=== PATIENT | female | born 1945 | race Two or more races ===

== ENCOUNTER 2023-08-10 05:44 | Inpatient (IN) | payer MEDICARE, OTHER ==
[~2023-08-10] VITALS: Ht 154.9 cm; Wt 50.5 kg
[2023-08-10] MEDS ORDERED: hydrALAZINE HCL 20 MG/ML VL IV ONE (06:00)
[2023-08-10 06:36] VITALS: PULSE 106; RESP 32; O2SAT 96
[2023-08-10] MEDS ORDERED: NITROGLYCERIN 0.4 MG SL TAB SL ONE (06:45)
[2023-08-10] MEDS ORDERED: FUROSEMIDE 40 MG/4 ML VIAL IV ONE (06:45)
[2023-08-10 06:48] LABS: Alanine Aminotransferase 14 U/L (7-40); Alkaline Phosphatase 114 U/L (46-116); Anion Gap 6 (5-15); Aspartate Aminotransferase 15 U/L (13-40); Basophils # (auto) 0.1 10 ^3/uL (0-0.2); Basophils % (auto) 1.3 % (0.0-2.0); Blood Urea Nitrogen 12 mg/dL (9-23); Calcium 8.4 mg/dL (8.7-10.4); Carbon Dioxide 27 mmol/L (20-30); Chloride 105 mmol/L (98-107); Eosinophils # (auto) 0.4 10 ^3/uL (0-0.8); Eosinophils % (auto) 8.4 % (0.0-7.0); Glucose 112 mg/dL (74-106); Hematocrit 38.1 % (36.0-46.0); Hemoglobin 12.7 g/dL (12.2-16.2); Lymphocytes # (auto) 2.5 10 ^3/uL (0.4-5.4); Lymphocytes % (auto) 48.3 % (10.0-50.0); Magnesium 1.9 mg/dL (1.6-2.6); Mean Corpuscular Hemoglobin 32.4 pg (28.0-32.0); Mean Corpuscular Hgb Conc. 33.4 g/dL (32.0-36.0); Monocytes # (auto) 0.3 10 ^3/uL (0-1.3); Monocytes % (auto) 6.6 % (0.0-12.0); Neutrophils # (auto) 1.8 10 ^3/uL (1.6-8.6); Neutrophils % (auto) 35.4 % (37.0-80.0); Nucleated Red Blood Cells % 0.1 %; Red Blood Cells 3.93 10^6/uL (4.0-5.20); Red Cell Distribution Width 14.9 % (11.8-14.3); Sodium 138 mmol/L (136-145); White Blood Cell 5.2 10^3/uL (4.4-10.8)
[2023-08-10 06:49] LABS: Bilirubin, Total 0.8 mg/dL (0.2-1.0)
[2023-08-10 06:50] LABS: Total Protein 6.9 g/dL (5.7-8.2)
[2023-08-10 07:09] LABS: Potassium 2.9 mmol/L (3.5-5.1)
[2023-08-10 07:10] LABS: INR 1.06 (0.9-1.15); Partial Thromboplastin Time 25.9 SEC (24.5-34.5); Prothrombin Time 11.1 sec (9.3-11.8)
[2023-08-10] MEDS ORDERED: POTASSIUM CHL 20MEQ/100ML 100 ML IV ONE (07:15)
[2023-08-10] MEDS ORDERED: IPRATROPIUM BROM 0.5 MG/2.5ML INH SOL HHN ONE (07:15)
[2023-08-10] MEDS ORDERED: methylPREDNISolone SOD SUCC 40 MG/ML VL IV ONE (07:15)
[2023-08-10] MEDS ORDERED: ALBUTEROL SULF 2.5 MG/0.5ML(0.5%) NEB SOLN HHN ONE (07:15)
[2023-08-10 07:23] LABS: Urine Bacteria FEW /hpf (None Seen); Urine Blood Negative /uL (Negative); Urine Clarity Clear (Clear); Urine Color Straw (Yellow); Urine Hyaline Cast FEW /lpf (0 - 2); Urine Mucus FEW (None Seen); Urine Protein, UAD TRACE (Negative); Urine Specific Gravity 1.014 (1.001-1.035); Urine Urobilinogen Normal (Negative); Urine WBC 2 /hpf (0 - 5); Urine pH 6.5 (5.0-8.0)
[2023-08-10 08:00] VITALS: PULSE 109; RESP 24; O2SAT 99
[2023-08-10] MEDS ORDERED: NITROGLYCERIN 0.4 MG SL TAB SL PRN (10:15)
[2023-08-10] MEDS ORDERED: MORPHINE SULFATE INJ 2 MG/ml SYRG IV PRN ×2 (10:15→10:30)
[2023-08-10] MEDS ORDERED: POTASSIUM CHL 20 Meq TABLET PO ONE (10:15)
[2023-08-10] MEDS ORDERED: ONDANSETRON HCL 4 MG/2 ML VIAL IV PRN (10:30)
[2023-08-10 10:43] VITALS: PULSE 84; RESP 24; O2SAT 96
[2023-08-10 11:20] LABS: Rapid Influenza A Negative (Negative); Rapid Influenza B Negative (Negative)
[2023-08-10 11:21] LABS: COVID19 ANTIGEN SOFIA FIA NEGATIVE (NEGATIVE)
[2023-08-10] MEDS: cefTRIAXone 1GM/50ML D5W 50 ML IV SCH (11:22)
[2023-08-10] MEDS: methylPREDNISolone SOD SUCC 40 MG/ML VL IV SCH ×2 (12:08→18:14)
[2023-08-10] MEDS: IPRATROPIUM BROM 0.5 MG/2.5ML INH SOL NEB SCH ×2 (13:01→17:58)
[2023-08-10] MEDS: ALBUTEROL SULF 2.5 MG/0.5ML(0.5%) NEB SOLN NEB SCH ×2 (13:01→17:58)
[2023-08-10 15:31] LABS: Potassium 3.8 mmol/L (3.5-5.1)
[2023-08-10 15:38] LABS: Magnesium 1.8 mg/dL (1.6-2.6)
[2023-08-10 17:58] VITALS: PULSE 79; RESP 18; O2SAT 92
[2023-08-10 18:08] VITALS: PULSE 74; RESP 20; O2SAT 94
[2023-08-10] MEDS ORDERED: cloNIDine HCL 0.1 MG TAB PO ONE (18:30)
[2023-08-10 19:50] VITALS: PULSE 69; RESP 18; O2SAT 92
[2023-08-10] MEDS: cloNIDine HCL 0.1 MG TAB PO SCH (22:00)
[2023-08-11] VITALS (11 sets, daily range): BP systolic 107–147; BP diastolic 60–83; PULSE 60–74; RESP 16–20; TEMP 97.7–98.1; O2SAT 92–100
[2023-08-11] MEDS: methylPREDNISolone SOD SUCC 40 MG/ML VL IV SCH ×2 (00:05→06:27)
[2023-08-11] MEDS: ALBUTEROL SULF 2.5 MG/0.5ML(0.5%) NEB SOLN NEB SCH ×2 (06:08→13:11)
[2023-08-11] MEDS: IPRATROPIUM BROM 0.5 MG/2.5ML INH SOL NEB SCH ×2 (06:08→13:10)
[2023-08-11] MEDS: cefTRIAXone 1GM/50ML D5W 50 ML IV SCH (09:45)
[2023-08-11] MEDS: cloNIDine HCL 0.1 MG TAB PO SCH (09:47)
[2023-08-11] MEDS ORDERED: FAMOTIDINE 20 MG TAB PO SCH (10:00)
[2023-08-11] MEDS ORDERED: ENOXAPARIN SOD 40 MG/0.4 ML SYRINGE SC SCH (10:00)
[2023-08-11] MEDS ORDERED: IPRA0.00 IN (13:18)
[2023-08-11] MEDS ORDERED: BLOO1KIT56 XX (13:18)
[2023-08-11] MEDS ORDERED: AMLO1TAB23 PO (13:18)
[2023-08-11] MEDS ORDERED: DOXY-286 PO (13:18)
[2023-08-11] MEDS ORDERED: PRED20TA2 PO (13:18)
== END 2023-08-11 16:53 | disposition home health service (06) | DRG 202 ==
LOC: EDBD 05:44 → ER 05:44 → TELE 10:14 → TELE-EAST 08-11 01:02
PROVIDERS: ADMIT Hospitalist; ATTEND Hospitalist
DX: J20.9 Acute bronchitis, unspecified (principal); I50.32 Chronic diastolic (congestive) heart failure; J44.0 Chronic obstructive pulmonary disease with (acute) lower respiratory infection; J84.9 Interstitial pulmonary disease, unspecified; J44.1 Chronic obstructive pulmonary disease with (acute) exacerbation; I16.0 Hypertensive urgency; E87.6 Hypokalemia; F17.200 Nicotine dependence, unspecified, uncomplicated; Z20.822 Contact with and (suspected) exposure to COVID-19; I11.0 Hypertensive heart disease with heart failure; Z90.710 Acquired absence of both cervix and uterus; Z82.49 Family history of ischemic heart disease and other diseases of the circulatory system
CPT/HCPCS: 36415; 71045; 80053; 81001; 83735; 83880; 84132; 84484; 85025; 85379; 85610; 85730; 87426; 87804; 92610; 93005; 93306; 94640; 96365; 96366; 96367; 96375; 99291; G0378; J0696; J3480

== ENCOUNTER 2023-12-20 02:34 | Inpatient (IN) | payer OTHER ==
[2023-12-20] VITALS (13 sets, daily range): BP systolic 129; BP diastolic 72; PULSE 64–79; RESP 14–26; O2SAT 97–100
[~2023-12-20] VITALS: Ht 160 cm; Wt 49.5 kg
[~2023-12-20 02:34] MED LIST: AMLO1TAB23 PO; BLOO1KIT56 XX; DOXY-286 PO; IPRA0.00 IN; PRED20TA2 PO
[2023-12-20] MEDS ORDERED: IPRATROPIUM BROM 0.5 MG/2.5ML INH SOL NEB ONE (03:30)
[2023-12-20] MEDS: methylPREDNISolone SOD SUCC 125 MG/2 ML VL IV ONE (03:30)
[2023-12-20] MEDS: DexAMETHasone SOD PHOS 10MG/1ML VIAL INJ IV ONE (03:31)
[2023-12-20] MEDS ORDERED: cefTRIAXone 2GM/50ML D5W 50 ML IV ONE (03:45)
[2023-12-20] MEDS: LABETALOL HCL 5 MG/ML 4ML SYRINGE IV ONE (03:57)
[2023-12-20 03:58] LABS: Base Excess -2.7 mmol/L (-2.0-2.0)
[2023-12-20] MEDS: ALBUTEROL SULF 2.5 MG/0.5ML(0.5%) NEB SOLN ONE ×2 (03:59→12:21)
[2023-12-20] MEDS: IPRATROPIUM BROM 0.5 MG/2.5ML INH SOL ONE ×2 (03:59→12:21)
[2023-12-20] MEDS: cefTRIAXone 1GM/50ML D5W 50 ML IV ONE ×2 (04:06→04:07)
[2023-12-20 04:08] LABS: Basophils # (auto) 0.1 10 ^3/uL (0-0.2); Eosinophils # (auto) 0.6 10 ^3/uL (0-0.8); Eosinophils % (auto) 10.4 % (0.0-7.0); Hematocrit 40.3 % (36.0-46.0); Hemoglobin 13.5 g/dL (12.2-16.2); Lymphocytes # (auto) 1.9 10 ^3/uL (0.4-5.4); Lymphocytes % (auto) 33.7 % (10.0-50.0); Mean Corpuscular Hemoglobin 32.3 pg (28.0-32.0); Mean Corpuscular Hgb Conc. 33.6 g/dL (32.0-36.0); Mean Corpuscular Volume 96.1 fL (80.0-100.0); Monocytes # (auto) 0.4 10 ^3/uL (0-1.3); Monocytes % (auto) 7.2 % (0.0-12.0); Neutrophils # (auto) 2.7 10 ^3/uL (1.6-8.6); Neutrophils % (auto) 47.7 % (37.0-80.0); Nucleated Red Blood Cells % 0.2 %; Red Blood Cells 4.19 10^6/uL (4.0-5.20); Red Cell Distribution Width 16.2 % (11.8-14.3); White Blood Cell 5.7 10^3/uL (4.4-10.8)
[2023-12-20] MEDS: AZITHROMYCIN 500MG/ 250ML 250 ML IV ONE (04:12)
[2023-12-20] MEDS: ALBUTEROL SULF 2.5 MG/0.5ML(0.5%) NEB SOLN NEB ONE ×2 (04:18→12:15)
[2023-12-20] MEDS: IPRATROPIUM BROM 0.5 MG/2.5ML INH SOL NEB ONE ×2 (04:18→12:15)
[2023-12-20] MEDS: BUDESONIDE (INHALATION) 0.5 MG/2 ML NEB NEB ONE (04:18)
[2023-12-20 04:47] LABS: COVID19 ANTIGEN SOFIA FIA NEGATIVE (NEGATIVE); Rapid Influenza A Negative (Negative); Rapid Influenza B Negative (Negative)
[2023-12-20 04:52] LABS: Alanine Aminotransferase 10 U/L (7-40); Albumin 4.2 g/dL (3.2-4.8); Alkaline Phosphatase 113 U/L (46-116); Anion Gap 7 (5-15); Aspartate Aminotransferase 18 U/L (13-40); Blood Urea Nitrogen 11 mg/dL (9-23); Calcium 8.5 mg/dL (8.7-10.4); Carbon Dioxide 25 mmol/L (20-30); Chloride 105 mmol/L (98-107); Glucose 126 mg/dL (74-106); Potassium 3.7 mmol/L (3.5-5.1); Sodium 137 mmol/L (136-145)
[2023-12-20 04:53] LABS: Bilirubin, Total 0.7 mg/dL (0.2-1.0); Total Protein 7.5 g/dL (5.7-8.2)
[2023-12-20] MEDS: LEVALBUTEROL HCL 1.25 MG/3 ML NEB NEB SCH (05:00)
[2023-12-20] MEDS ORDERED: LEVALBUTEROL HCL 1.25 MG/3 ML NEB NEB SCH (06:00)
[2023-12-20 10:15] LABS: Urine Bacteria FEW /hpf (None Seen); Urine Blood Negative /uL (Negative); Urine Clarity Clear (Clear); Urine Color Yellow (Yellow); Urine Hyaline Cast FEW /lpf (0 - 2); Urine Mucus FEW (None Seen); Urine Protein, UAD 1+ (Negative); Urine Specific Gravity 1.017 (1.001-1.035); Urine Urobilinogen Normal (Negative); Urine WBC 3 /hpf (0 - 5)
[2023-12-20] MEDS ORDERED: ONDANSETRON HCL 4 MG/2 ML VIAL IV PRN (11:30)
[2023-12-20] MEDS ORDERED: MORPHINE SULFATE INJ 2 MG/ml SYRG IV PRN ×2 (11:30)
[2023-12-20] MEDS ORDERED: NITROGLYCERIN 0.4 MG SL TAB SL PRN (11:30)
[2023-12-20] MEDS ORDERED: HYDROcodone-ACET 5/325MG TAB PO PRN (11:30)
[2023-12-20] MEDS: methylPREDNISolone SOD SUCC 40 MG/ML VL IV SCH (14:09)
[2023-12-20] MEDS: ALBUTEROL SULF 2.5 MG/0.5ML(0.5%) NEB SOLN NEB SCH (14:33)
[2023-12-20] MEDS: IPRATROPIUM BROM 0.5 MG/2.5ML INH SOL NEB SCH (14:33)
[2023-12-20] MEDS: BUDESONIDE (INHALATION) 0.5 MG/2 ML NEB NEB SCH (18:43)
[2023-12-20] MEDS: FAMOTIDINE 20 MG TAB PO SCH (22:31)
[2023-12-21] VITALS (16 sets, daily range): BP systolic 108–162; BP diastolic 56–93; PULSE 67–104; RESP 14–22; TEMP 97.6–98.2; O2SAT 72–100
[2023-12-21] MEDS: cefTRIAXone 1GM/50ML D5W 50 ML IV SCH (09:29)
[2023-12-21] MEDS: ENOXAPARIN SOD 40 MG/0.4 ML SYRINGE SC SCH (09:31)
[2023-12-21] MEDS ORDERED: ALBU2TAB11 PO (16:13)
[2023-12-21] MEDS ORDERED: AML5T GT (16:13)
[2023-12-21] MEDS ORDERED: MONT-8 OR (16:13)
[2023-12-21] MEDS ORDERED: BUDE1AER5 IN (16:13)
[2023-12-21] MEDS: ALBUTEROL SULF 2.5 MG/0.5ML(0.5%) NEB SOLN NEB PRN (18:29)
[2023-12-21] MEDS: IPRATROPIUM BROM 0.5 MG/2.5ML INH SOL NEB PRN (18:29)
[2023-12-21] MEDS ORDERED: VANCOMYCIN PER PHARMACY 0 MG IV SCH (21:45)
[2023-12-21] MEDS: VANCOMYCIN 1GM/200ML 200 ML IV ONE (21:55)
[2023-12-22] VITALS (10 sets, daily range): BP systolic 134–152; BP diastolic 67–76; PULSE 59–73; RESP 16–20; TEMP 36.7; O2SAT 94–99
[2023-12-22 06:51] LABS: Basophils # (auto) 0 10 ^3/uL (0-0.2); Basophils % (auto) 0.1 % (0.0-2.0); Eosinophils # (auto) 0 10 ^3/uL (0-0.8); Hematocrit 36.3 % (36.0-46.0); Hemoglobin 12.3 g/dL (12.2-16.2); Lymphocytes # (auto) 0.6 10 ^3/uL (0.4-5.4); Lymphocytes % (auto) 8.1 % (10.0-50.0); Mean Corpuscular Hemoglobin 32.2 pg (28.0-32.0); Mean Corpuscular Hgb Conc. 33.7 g/dL (32.0-36.0); Mean Corpuscular Volume 95.4 fL (80.0-100.0); Monocytes # (auto) 0.2 10 ^3/uL (0-1.3); Monocytes % (auto) 2.5 % (0.0-12.0); Neutrophils # (auto) 6.3 10 ^3/uL (1.6-8.6); Neutrophils % (auto) 89.3 % (37.0-80.0); Red Blood Cells 3.81 10^6/uL (4.0-5.20); White Blood Cell 7.1 10^3/uL (4.4-10.8)
[2023-12-22 06:56] LABS: Anion Gap 6 (5-15); Carbon Dioxide 27 mmol/L (20-30); Chloride 104 mmol/L (98-107); Sodium 137 mmol/L (136-145)
[2023-12-22 06:58] LABS: Calcium 8.6 mg/dL (8.5-10.1)
[2023-12-22 07:02] LABS: BUN/Creatinine Ratio 33.8 (10.0-20.0); Blood Urea Nitrogen 27 mg/dL (9-23); Glucose 138 mg/dL (74-106)
[2023-12-22] MEDS ORDERED: PRED20TA2 PO (16:15)
[2023-12-22] MEDS ORDERED: BUDE1AER5 IN (16:15)
[2023-12-22] MEDS ORDERED: MONT-8 OR (16:15)
[2023-12-22] MEDS ORDERED: AMOX500T86 PO (16:15)
[2023-12-22] MEDS ORDERED: IPRA0.00 IN (16:15)
[2023-12-22] MEDS ORDERED: VANCOMYCIN 750mg/150ml 150 ML IV SCH (18:00)
== END 2023-12-22 18:54 | disposition home health service (06) | DRG 177 ==
LOC: ER 02:34 → EDBD 02:34 → OVERFLOW 11:33 → WEST WING 12-21 02:11
PROVIDERS: ADMIT Hospitalist; ATTEND Hospitalist
DX: J15.69 Pneumonia due to other Gram-negative bacteria (principal); I50.33 Acute on chronic diastolic (congestive) heart failure; J44.1 Chronic obstructive pulmonary disease with (acute) exacerbation; J98.11 Atelectasis; J45.901 Unspecified asthma with (acute) exacerbation; J44.0 Chronic obstructive pulmonary disease with (acute) lower respiratory infection; J15.9 Unspecified bacterial pneumonia; Z20.822 Contact with and (suspected) exposure to COVID-19; J20.9 Acute bronchitis, unspecified; I11.0 Hypertensive heart disease with heart failure; Z90.710 Acquired absence of both cervix and uterus; R06.03 Acute respiratory distress
CPT/HCPCS: 36415; 36600; 71045; 80048; 80053; 81001; 82805; 83605; 83880; 84484; 85025; 85379; 87040; 87077; 87186; 87426; 87804; 93005; 94640; 96365; 96375; 97110; 97116; 97163; 97530; 99291; G0378; J1100; J3490

== ENCOUNTER 2024-04-07 18:15 | Inpatient (IN) | payer OTHER ==
[~2024-04-07] VITALS: Ht 149.9 cm; Wt 60.8 kg
[~2024-04-07 18:15] MED LIST changes: +ALBU2TAB11 PO; +AMOX500T86 PO; +BUDE1AER5 IN; -DOXY-286 PO; +MONT-8 OR
[2024-04-07] MEDS: ALBUTEROL SULF 2.5 MG/0.5ML(0.5%) NEB SOLN NEB ONE ×2 (20:35→23:39)
[2024-04-07] MEDS: IPRATROPIUM BROM 0.5 MG/2.5ML INH SOL NEB ONE ×2 (20:35→23:39)
[2024-04-07 20:41] LABS: Basophils # (auto) 0 10 ^3/uL (0-0.2); Basophils % (auto) 0.4 % (0.0-2.0); Eosinophils # (auto) 0 10 ^3/uL (0-0.8); Eosinophils % (auto) 0.1 % (0.0-7.0); Hematocrit 36.4 % (36.0-46.0); Hemoglobin 12.5 g/dL (12.2-16.2); Lymphocytes # (auto) 0.8 10 ^3/uL (0.4-5.4); Lymphocytes % (auto) 6.8 % (10.0-50.0); Mean Corpuscular Hemoglobin 32.7 pg (28.0-32.0); Mean Corpuscular Hgb Conc. 34.4 g/dL (32.0-36.0); Mean Corpuscular Volume 94.9 fL (80.0-100.0); Monocytes # (auto) 0.7 10 ^3/uL (0-1.3); Monocytes % (auto) 5.5 % (0.0-12.0); Neutrophils # (auto) 10.7 10 ^3/uL (1.6-8.6); Neutrophils % (auto) 87.2 % (37.0-80.0); Red Blood Cells 3.83 10^6/uL (4.0-5.20); Red Cell Distribution Width 15.3 % (11.8-14.3); White Blood Cell 12.3 10^3/uL (4.4-10.8)
[2024-04-07 20:51] LABS: Anion Gap 7 (5-15); Carbon Dioxide 24 mmol/L (20-30); Chloride 100 mmol/L (98-107); Potassium 3.6 mmol/L (3.5-5.1); Sodium 131 mmol/L (136-145)
[2024-04-07 20:52] LABS: Calcium 8.7 mg/dL (8.5-10.1)
[2024-04-07 20:57] LABS: BUN/Creatinine Ratio 36.1 (10.0-20.0); Blood Urea Nitrogen 26 mg/dL (9-23); Glucose 90 mg/dL (74-106)
[2024-04-07] MEDS: predniSONE 20 MG TAB PO ONE (21:30)
[2024-04-07] MEDS ORDERED: DOXY-286 PO (21:44)
[2024-04-07] MEDS ORDERED: PRED20TA2 PO (21:44)
[2024-04-07] MEDS ORDERED: ALBU108A5 IN (21:44)
[2024-04-07] MEDS: cefTRIAXone W LIDOCAINE 1 GM IM IM ONE (21:47)
[2024-04-07] MEDS: LIDOCAINE 1% HCL (LOCAL ANESTH.) INJ 20ML MDV ONE (22:50)
[2024-04-07] MEDS: cefTRIAXone SOD 1,000 MG VL IM ONE (22:51)
[2024-04-07] MEDS: AZITHROMYCIN 250 MG TAB PO ONE (23:29)
[2024-04-07] MEDS: cefTRIAXone 1GM/50ML D5W 50 ML IV ONE (23:29)
[2024-04-07 23:35] VITALS: O2SAT 96
[2024-04-08] VITALS (11 sets, daily range): BP systolic 132–139; BP diastolic 68–73; PULSE 60–84; RESP 18–22; TEMP 97.8; O2SAT 95–100
[2024-04-08] MEDS ORDERED: ONDANSETRON HCL 4 MG/2 ML VIAL IV PRN (00:15)
[2024-04-08] MEDS ORDERED: ACETAMINOPHEN 325 MG TAB PO PRN (00:15)
[2024-04-08] MEDS: SODIUM CHLORIDE 0.9% 1,000 ML IV ONE (00:32)
[2024-04-08 01:16] LABS: COVID19 ANTIGEN SOFIA FIA NEGATIVE (NEGATIVE)
[2024-04-08 01:17] LABS: Rapid Influenza A Negative (Negative); Rapid Influenza B Negative (Negative)
[2024-04-08] MEDS: ALBUTEROL SULF 2.5 MG/0.5ML(0.5%) NEB SOLN NEB PRN (02:02)
[2024-04-08] MEDS: IPRATROPIUM BROM 0.5 MG/2.5ML INH SOL NEB SCH ×2 (02:02→12:15)
[2024-04-08 08:31] LABS: Urine Bacteria FEW /hpf (None Seen); Urine Blood Negative /uL (Negative); Urine Hyaline Cast FEW /lpf (0 - 2); Urine Mucus FEW (None Seen); Urine Protein, UAD TRACE (Negative); Urine Specific Gravity 1.016 (1.001-1.035); Urine Urobilinogen Normal (Negative); Urine WBC 7 /hpf (0 - 5); Urine pH 5.5 (5.0-9.0)
[2024-04-08 08:33] LABS: Urine Clarity Hazy (Clear); Urine Color Yellow (Yellow)
[2024-04-08] MEDS: PANTOPRAZOLE 40 MG/10 ML VIAL INJ IV SCH (11:18)
[2024-04-08] MEDS: ENOXAPARIN SOD 40 MG/0.4 ML SYRINGE SC SCH (11:18)
[2024-04-08] MEDS: ALBUTEROL SULF 2.5 MG/0.5ML(0.5%) NEB SOLN NEB SCH (12:15)
[2024-04-08] MEDS ORDERED: MORPHINE SULFATE INJ 2 MG/ml SYRG IV PRN (12:15)
[2024-04-08] MEDS ORDERED: NITROGLYCERIN 0.4 MG SL TAB SL PRN (12:15)
[2024-04-08] MEDS: BUDESONIDE (INHALATION) 0.5 MG/2 ML NEB NEB SCH (18:22)
[2024-04-08] MEDS: cefTRIAXone 1GM/50ML D5W 50 ML IV SCH (23:08)
[2024-04-09] VITALS (13 sets, daily range): BP systolic 109–122; BP diastolic 54–68; PULSE 62–77; RESP 16–20; TEMP 97.5–98.1; O2SAT 95–99
[2024-04-09] MEDS: AZITHROMYCIN 500MG/ 250ML 250 ML IV SCH (00:20)
[2024-04-09 06:17] LABS: Basophils # (auto) 0 10 ^3/uL (0-0.2); Basophils % (auto) 0.2 % (0.0-2.0); Eosinophils # (auto) 0 10 ^3/uL (0-0.8); Eosinophils % (auto) 0.3 % (0.0-7.0); Hematocrit 32.8 % (36.0-46.0); Hemoglobin 11.4 g/dL (12.2-16.2); Lymphocytes # (auto) 0.9 10 ^3/uL (0.4-5.4); Lymphocytes % (auto) 12.7 % (10.0-50.0); Mean Corpuscular Hemoglobin 33.1 pg (28.0-32.0); Mean Corpuscular Hgb Conc. 34.9 g/dL (32.0-36.0); Mean Corpuscular Volume 94.8 fL (80.0-100.0); Monocytes # (auto) 0.6 10 ^3/uL (0-1.3); Neutrophils # (auto) 5.8 10 ^3/uL (1.6-8.6); Neutrophils % (auto) 78.8 % (37.0-80.0); Red Blood Cells 3.46 10^6/uL (4.0-5.20); Red Cell Distribution Width 15.4 % (11.8-14.3); White Blood Cell 7.3 10^3/uL (4.4-10.8)
[2024-04-09 06:39] LABS: Alanine Aminotransferase 21 U/L (7-40); Albumin 3.3 g/dL (3.2-4.8); Alkaline Phosphatase 91 U/L (46-116); Anion Gap 5 (5-15); Aspartate Aminotransferase 29 U/L (13-40); BUN/Creatinine Ratio 46.8 (10.0-20.0); Bilirubin, Total 0.2 mg/dL (0.2-1.0); Calcium 8.4 mg/dL (8.5-10.1); Carbon Dioxide 27 mmol/L (20-30); Chloride 104 mmol/L (98-107); Glucose 98 mg/dL (74-106); Potassium 3.3 mmol/L (3.5-5.1); Sodium 136 mmol/L (136-145); Total Protein 5.9 g/dL (5.7-8.2)
[2024-04-09 06:41] LABS: Blood Urea Nitrogen 36 mg/dL (9-23)
[2024-04-09] MEDS: FAMOTIDINE 20 MG TAB PO SCH ×2 (10:49→20:53)
[2024-04-09] MEDS: amLODIPine BESYLATE 5 MG TAB PO SCH (10:50)
[2024-04-09] MEDS ORDERED: ACETAMINOPHEN 325 MG TAB PO PRN (18:30)
[2024-04-09] MEDS: POTASSIUM CHL 20 Meq TABLET PO ONE (18:42)
[2024-04-09] MEDS: ACETAMINOPHEN 325 MG TAB PO PRN (18:42)
[2024-04-10] VITALS (19 sets, daily range): BP systolic 110–160; BP diastolic 57–85; PULSE 61–91; RESP 16–20; TEMP 36.5; O2SAT 96–100
[2024-04-10] MEDS ORDERED: IPRA0.00 IN (12:24)
[2024-04-10] MEDS ORDERED: AZIT500T66 PO (12:24)
[2024-04-10] MEDS ORDERED: PRED20TA2 PO (12:24)
[2024-04-10] MEDS ORDERED: DICL1GEL83 EX (12:26)
[2024-04-10] MEDS: POTASSIUM EFFERVESENT TAB 25 MEQ PO ONE (14:47)
[2024-04-11] VITALS (11 sets, daily range): BP systolic 110–126; BP diastolic 56–73; PULSE 67–80; RESP 16–18; TEMP 97.6–98.3; O2SAT 95–100
== END 2024-04-11 17:00 | disposition home or self-care (01) | DRG 190 ==
LOC: ER 18:15 → TELE 04-08 12:14 → TELE-WESTW 04-08 16:20
PROVIDERS: ADMIT Hospitalist; ATTEND Hospitalist
DX: J44.1 Chronic obstructive pulmonary disease with (acute) exacerbation (principal); J15.69 Pneumonia due to other Gram-negative bacteria; J15.9 Unspecified bacterial pneumonia; J20.9 Acute bronchitis, unspecified; J44.0 Chronic obstructive pulmonary disease with (acute) lower respiratory infection; I10 Essential (primary) hypertension; J84.10 Pulmonary fibrosis, unspecified; Z20.822 Contact with and (suspected) exposure to COVID-19; Z87.891 Personal history of nicotine dependence; Z91.199 Patient's noncompliance with other medical treatment and regimen due to unspecified reason; Z90.710 Acquired absence of both cervix and uterus
CPT/HCPCS: 36415; 71045; 80048; 80053; 81001; 83605; 83880; 84484; 85025; 87040; 87426; 87804; 94640; 96361; 96365; 97163; C9113; G0378; J0696; J2001

== ENCOUNTER 2025-03-17 14:47 | Emergency (ER) | payer OTHER ==
[~2025-03-17] VITALS: Ht 152.4 cm; Wt 50.0 kg
[~2025-03-17 14:47] MED LIST changes: +ALBU108A5 IN; -AMOX500T86 PO; +AZIT500T66 PO; +DICL1GEL83 EX
[2025-03-17] MEDS: ACETAMINOPHEN 325 MG TAB PO ONE (15:15)
--- NOTE | 2025-03-17 15:21 | ED.PDOC ---
History of Present Illness HPI Comments 79F BIBA w/ prior MHX of COPD w/ 2L of O2 at home and the c/c of CP. Pt reports on having CP w/ left lateral side w/ SOB. EMS states they increased patient's O2 to 6 L and symptoms improved. Pt states on going to [facility] for a workup due from the same symptoms and that the pt might have a possible pleural Diffusion. The family and the pt are poor Hx. Patient complains of current chest pain of 2/10. Denies chills, fever, N/V/D, SOB. Denies any other associated symptom's, modifiers, or recent injuries or sick contact at this time. Patient was mildly tachypneic and tachycardic at arrival. Chief Complaint: Chest Pain Time Seen by MD: 15:10 Primary Care Provider: NONE Reviewed Notes: Nurses Notes, Upper Cutter Notes, Medications, Allergies Allergies: Coded Allergies: NO KNOWN ALLERGIES (Unverified , 04/21/10) Home Meds Active Scripts Diclofenac Sodium (Topical) (Aspercreme Arthritis Pain) 1 % Gel, 1 % EX BID, #1 GEL To apply to right knee for pain x2 weeks Prov:ANA MARÍA JARA MD 04/10/24 Azithromycin (Azithromycin) 500 Mg Tab, 1 TAB PO DAILY, #3 TAB Prov:ANA MARÍA JARA MD 04/10/24 Ipratropium-Albuterol (Ipratropium Dorset/Albut) 1 Asad Asad, 1 ASAD IN TID, #90 ML Prov:ANA MARÍA JARA MD 04/10/24 Prednisone (Prednisone) 20 Mg Tab, 20 MG PO DAILY@BREAKFAST, #5 MG Prov:ANA MARÍA JARA MD 04/10/24 Albuterol Sulfate (Albuterol Sulfate Hfa) 108 Mcg/Act Aer, 108 MCG IN Q2HP PRN, #1 AER Prov:WAQAR AGUILAR DO 04/07/24 Budesonide-Formoterol Fumarate (Budesonide/Formoterol Fum 80-4.5 Mcg/Act) 1 Aer Aer, 1 AER IN BID, #1 AER Prov:ANA MARÍA JARA MD 12/22/23 Montelukast Sodium (MONTELUKAST SODIUM) 10 Mg Tab, 10 MG OR DAILY@DINNER, #90 TAB Prov:ANA MARÍA JARA MD 12/22/23 Blood Pressure Monitoring (Blood Pressure Monitor/De) 1 Kit Kit, KIT XX DAILY, #1 Prov:ANA MARÍA JARA MD 08/11/23 Amlodipine Besylate (Amlodipine Besylate) 10 Mg Tab, 1 TAB PO DAILY, #90 TAB 1 Refill Prov:ANA MARÍA JARA MD 08/11/23 Reported Medications Albuterol Sulfate (Albuterol Sulfate) 2 Mg Tab, 2 MG PO BID PRN for SHORTNESS OF BREATH, MG 12/21/23 Information Source: Patient, Emergency Med Personnel Mode of Arrival: EMS Severity: Moderate Timing: Came on: Gradually Duration: Since onset Prehospital treatment: None Past Medical History PAST MEDICAL HISTORY: COPD Surgical History: Unknown 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 DOSIER OPERATOR History Family History Family History: Reviewed,noncontributory to illness, Unknown Social History Smoker: Non-Smoker Alcohol: Denies ETOH Use Drugs: Denies Drug Use Lives In: Home Constitutional: denies: chills, diaphoresis, fatigue, fever, malaise, sweats, weakness, others EENTM: denies: blurred vision, double vision, ear bleeding, ear discharge, ear drainage, ear pain, ear ringing, eye pain, eye redness, hearing loss, mouth pain, mouth swelling, nasal discharge, nose bleeding, nose congestion, nose pain, photophobia, tearing, throat pain, throat swelling, voice changes, others Respiratory: reports: shortness of breath; denies: cough, hemoptysis, orthopnea, SOB at rest, SOB with excertion, stridor, wheezing, others Cardiovascular: reports: chest pain; denies: dizzy spells, diaphoresis, Dyspnea on exertion, edema, irregular heart beat, left arm pain, lightheadedness, palpitations, PND, syncope, others Gastrointestinal: denies: abdomen distended, abdominal pain, blood streaked bowels, constipated, diarrhea, dysphagia, difficulty swallowing, hematemesis, melena, nausea, poor appetite, poor fluid intake, rectal bleeding, rectal pain, vomiting, others Genitourinary: denies: abnormal vagina bleeding, burning, dyspareunia, dysuria, flank pain, frequency, hematuria, incontinence, pain, , vagina discharge, urgency, others Neurological: denies: dizziness, fainting, headache, left sided numbness, left sided weakness, numbness, paresthesia, pre-existing deficit, right sided numbness, right sided weakness, seizure, speech problems, tingling, tremors, weakness, others Musculoskeletal: denies: back pain, gout, joint pain, joint swelling, muscle pain, muscle stiffness, neck pain, others Integumetry: denies: bruises, change in color, change in hair/nails, dryness, laceration, lesions, lumps, rash, wounds, others Allergic/Immunocompromised: denies: Difficulty Healing, Frequent Infections, Hives, Itching, others Hematologic/Lymphatic: denies: anemia, blood clots, easy bleeding, easy bruising, swollen glands, others Endocrine: denies: excessive hunger, excessive sweating, excessive thirst, excessive urination, flushing, intolerance to cold, intolerance to heat, unexplained weight gain, unexplained weight loss, others Psychiatric: denies: anxiety, bipolar disorder, depression, hopeless, panic disorder, schizophrenia, sleepless, suicidal, others All Other Systems: Reviewed and Negative Physical Exam General Appearance: Mild Distress (Patient was in mild distress at time of evaluation with respect to chest pain concerns. Patient appears to be in poor overall health.), Normal HEENT: Normal ENT Inspection, Pharynx Normal, TMs Normal Neck: Full Range of Motion, Non-Tender, Normal, Normal Inspection Respiratory: Chest Non-Tender, No Accessory Muscle Use, No Respiratory Distres s, Other (Patient displays patchy rhonchi throughout bilateral lung womack. No accessory muscle use. No signs of respiratory distress. Patient was on oxygen via nasal cannula.) Cardiovascular: No Edema, No JVD, No Murmur, No Gallop, Normal Peripheral Pulses, Regular Rate/Rhythm Breast Exam: Deferred Gastrointestinal: No Organomegaly, Non Tender, No Pulsatile Mass, Normal Bowel Sounds, Soft Genitalia: Deferred Pelvic: Deferred Rectal: Deferred Extremities: No calf tenderness, Normal capillary refill, No pedal edema Musculoskeletal : Apperance: Normal Neurologic: Alert, No Motor Deficits, Normal Affect, Normal Mood, No Sensory Deficits Cerebellar Function: NOT DONE Reflexes: NOT DONE Skin: Dry, Normal Color, Warm Lymphatic: No Adenopathy Was a procedure done? Was a procedure done?: No Differential Dx Considerations may include: Influenza, COVID, pneumonia, viral upper respiratory illness, COPD exacerbation, sepsis, electrolyte abnormality X-Ray, Labs, Meds, VS Vital Signs Date Time Temp Pulse Resp B/P (MAP) Pulse Ox O2 Delivery O2 Flow Rate FiO2 03/17/25 20:00 98.1 76 15 131/71 (91) 99 98.1 03/17/25 18:00 98.0 74 20 125/67 (86) 100 98.0 03/17/25 17:33 16 99 Nasal Cannula* 2 28 03/17/25 16:04 73 26 100 Nasal Cannula* 2 28 03/17/25 16:04 98.0 73 26 129/73 (91) 100 98.0 03/17/25 15:55 72 03/17/25 14:58 97.7 82 24 149/76 (100) 100 97.7 03/17/25 14:54 75 Lab Test 03/17/25 18:39 03/17/25 18:17 03/17/25 16:36 03/17/25 15:58 Range/Units Troponin I High Sensitivity 22 24 </=34 ng/L Influenza Type A Antigen Negative Negative Influenza Type B Antigen Negative Negative SARS-CoV-2 Antigen (Rapid) Negative NEGATIVE Urine Color Light-yellow Yellow Urine Clarity Clear Clear Urine pH 6.5 5.0-9.0 Urine Specific [place] 1.013 1.001-1.035 Urine Protein Negative Negative Urine Ketones Negative Negative Urine Blood Negative Negative /uL Urine Nitrite Negative Negative Urine Bilirubin Negative Negative Urine Urobilinogen Normal Negative mg/dL Urine Leukocyte Esterase Negative Negative /uL Urine RBC 1 0 - 4 /hpf Urine Microscopic WBC 1 0-5 /HPF Urine Squamous Epithelial Cells Few <5 /hpf Urine Bacteria None seen None Seen /hpf Urine Mucus Few None Seen Urine Glucose Normal Normal mg/dL Test 03/17/25 15:23 Range/Units White Blood Count 4.4 4.4-10.8 10^3/uL Red Blood Count 3.03 L 4.0-5.20 10^6/uL Hemoglobin 11.2 L 12.2-16.2 g/dL Hematocrit 32.2 L 36.0-46.0 % Mean Corpuscular Volume 106.4 H 80.0-100.0 fL Mean Corpuscular Hemoglobin 36.9 H 28.0-32.0 pg Mean Corpuscular Hemoglobin Concent 34.6 32.0-36.0 g/dL Red Cell Distribution Width 16.9 H 11.8-14.3 % Platelet Count 185 140-450 10^3/uL Mean Platelet Volume 7.9 6.9-10.8 fL Neutrophils (%) (Auto) 52.6 37.0-80.0 % Lymphocytes (%) (Auto) 29.7 10.0-50.0 % Monocytes (%) (Auto) 7.1 0.0-12.0 % Eosinophils (%) (Auto) 8.6 H 0.0-7.0 % Basophils (%) (Auto) 2.0 0.0-2.0 % Neutrophils # (Auto) 2.3 1.6-8.6 10 ^3/uL Lymphocytes # (Auto) 1.3 0.4-5.4 10 ^3/uL Monocytes # (Auto) 0.3 0-1.3 10 ^3/uL Eosinophils # (Auto) 0.4 0-0.8 10 ^3/uL Basophils # (Auto) 0.1 0-0.2 10 ^3/uL Nucleated Red Blood Cells 0.1 % D-Dimer, Quantitative 0.41 0.0-0.49 mg/L FEU Sodium Level 136 136-145 mmol/L Potassium Level 4.3 3.5-5.1 mmol/L Chloride Level 99 98-107 mmol/L Carbon Dioxide Level 31 20-31 mmol/L Anion Gap 6 5-15 Blood Urea Nitrogen 10 9-23 mg/dL Creatinine 0.54 L 0.550-1.02 mg/dL Glomerular Filtration Rate Calc 93 >90 mL/min BUN/Creatinine Ratio 18.5 10.0-20.0 Serum Glucose 94 74-106 mg/dL Calcium Level 8.9 8.7-10.4 mg/dL Total Bilirubin 0.5 0.2-1.0 mg/dL Aspartate Amino Transferase (AST) 16 13-40 U/L Alanine Aminotransferase (ALT) < 9 7-40 U/L Alkaline Phosphatase 72 46-116 U/L Troponin I High Sensitivity 24 </=34 ng/L B-Type Natriuretic Peptide 63.21 0-100 pg/mL Total Protein 7.6 5.7-8.2 g/dL Albumin 4.0 3.2-4.8 g/dL Current Medications Medications (Trade) Dose Ordered Sig/Monica Route Start Time Stop Time Status Last Admin Dexamethasone Sodium Phosphate (Decadron Injection) 10 mg ONCE ONCE IV 03/17/25 17:15 03/17/25 17:16 DC 03/17/25 17:19 Albuterol (Ventolin Medneb) 5 mg ONCE ONCE NEB 03/17/25 17:15 03/17/25 17:16 DC 03/17/25 17:31 Ipratropium Dorset (Atrovent Medneb) 0.5 mg ONCE ONCE NEB 03/17/25 17:15 03/17/25 17:16 DC 03/17/25 17:31 Azithromycin 250 ml @ 125 mls/hr ONCE ONCE IV 03/17/25 19:30 03/17/25 21:29 DC 03/17/25 19:41 [place] [id number] Ph: [phone] DIAGNOSTIC IMAGING Diagnostic Imaging Report : [id number] Signed PATIENT: CHARLES NAQVICCT: [id number] UNIT: [id number] : 1945 LOC: ER ROOM / BED: / AGE / SEX: 79 / F ADM STATUS: REG ER SERVICE 1512 ORDERING PHYSICIAN: SABINA YOST PAC PROCEDURE(s): CXRP - CHEST PORTABLE REASON: Chest pain ORDER NUMBER(s): [id number], ACCESSION NUMBER(s): [id number] CHEST RADIOGRAPH Indication: Chest pain Technique: Single frontal view of the chest was obtained Comparison: XY CHEST PORTABLE on DOS: 04/07/24 FINDINGS: Lines and Tubes: None Lungs: Diffuse bilateral infiltrates. Pleura: No effusion. No pneumothorax. Cardiomediastinal contours: Unremarkable Bones: No acute osseous abnormality. Left glenohumeral arthrosis. IMPRESSION: 1. Multifocal airspace disease concerning for multifocal pneumonia. ATED BY: ASPEN SALGADO MD DICTATED DATE/TIME: 03/17/251538 SIGNED BY: ASPEN SALGADO MD SIGNED DATE/TIME: 03/17/251538 CC: X-Ray, Labs, Meds, VS Comment All studies performed the ED were evaluated by me personally. EKG revealed a sinus rhythm with a rate of 75. Borderline short DE interval, left anterior fascicular block, LVH by voltage and anterior Q-waves possibly due to LVH. DE interval of 111 and QT interval of 367. Serum evaluation revealed a mild anemia. Urinalysis was unremarkable for any urinary tract infection. Chest x- ray revealed a multifocal airspace disease concerning for multifocal pneumonia. Due to the patient's oxygen needs, patient will be admitted for management of her multifocal pneumonia concerns and oxygen needs. Patient was a [employer] individual and therefore, provider Hardy Esparza was contacted. Hardy came to the facility and evaluated the patient. He advised discharged home with Levaquin 750 for five days. Patient has been advised to follow up on outpatient basis. Time of 1ST Reevaluation: 19:35 Reevaluation 1ST: Improved Consultation: PCP Patient Education/Counseling: Diagnosis, Treatment, Prognosis Family Education/Counseling: Diagnosis, Treatment, No Family Present Departure 1 Departure Time of Disposition: 19:36 Impression: Primary Impression: Multifocal pneumonia Disposition: ADMITTED INPATIENT Condition: Stable Additional Instructions: Advised patient utilize antibiotics as directed until completion as well as follow up on an outpatient basis as advised by provider Hardy Esparza. e-Prescriptions Levofloxacin Hemihydrate (LEVOFLOXACIN) 750 Mg Tab 1 TAB PO DAILY for 5 Days, #5 TAB Prov: SABINA YOST PAC 03/17/25 Discharged With: Self, Relative Critical Care Note Critical Care Time?: No Stability Stability form required: No Heart Score Heart Score: Heart Score Response (Comments) Value History Slightly Suspicious 0 EKG Repolarization Disturb 1 Age >65 2 Risk Factors 1 or 2 risk factors 1 Troponin Normal limit 0 Total 4 I personally scribed for SABINA YOST PAC ([email or web address]) on 03/17/25 at 15:21. Electronically submitted by Abhishek Emerson ([email or web address]). I personally scribed for SABINA YOST PAC ([email or web address]) on 03/17/25 at 16:22. Electronically submitted by Abhishek Emerson ([email or web address]). SABINA YOST PAC March 17, 2025 15:21
[2025-03-17 15:38] LABS: Basophils # (auto) 0.1 10 ^3/uL (0-0.2); Eosinophils # (auto) 0.4 10 ^3/uL (0-0.8); Eosinophils % (auto) 8.6 % (0.0-7.0); Hematocrit 32.2 % (36.0-46.0); Hemoglobin 11.2 g/dL (12.2-16.2); Lymphocytes # (auto) 1.3 10 ^3/uL (0.4-5.4); Lymphocytes % (auto) 29.7 % (10.0-50.0); Mean Corpuscular Hemoglobin 36.9 pg (28.0-32.0); Mean Corpuscular Hgb Conc. 34.6 g/dL (32.0-36.0); Mean Corpuscular Volume 106.4 fL (80.0-100.0); Monocytes # (auto) 0.3 10 ^3/uL (0-1.3); Monocytes % (auto) 7.1 % (0.0-12.0); Neutrophils # (auto) 2.3 10 ^3/uL (1.6-8.6); Neutrophils % (auto) 52.6 % (37.0-80.0); Nucleated Red Blood Cells % 0.1 %; Platelet Count (auto) 185 10^3/uL (140-450); Red Blood Cells 3.03 10^6/uL (4.0-5.20); Red Cell Distribution Width 16.9 % (11.8-14.3); White Blood Cell 4.4 10^3/uL (4.4-10.8)
--- NOTE | 2025-03-17 15:41 | DVH ---
CHEST RADIOGRAPH Indication: Chest pain Technique: Single frontal view of the chest was obtained Comparison: XY CHEST PORTABLE on DOS: 04/07/24 FINDINGS: Lines and Tubes: None Lungs: Diffuse bilateral infiltrates. Pleura: No effusion. No pneumothorax. Cardiomediastinal contours: Unremarkable Bones: No acute osseous abnormality. Left glenohumeral arthrosis. IMPRESSION: 1. Multifocal airspace disease concerning for multifocal pneumonia.
[2025-03-17 15:52] LABS: Alkaline Phosphatase 72 U/L (46-116); Anion Gap 6 (5-15); Aspartate Aminotransferase 16 U/L (13-40); BUN/Creatinine Ratio 18.5 (10.0-20.0); Blood Urea Nitrogen 10 mg/dL (9-23); Calcium 8.9 mg/dL (8.7-10.4); Carbon Dioxide 31 mmol/L (20-31); Chloride 99 mmol/L (98-107); Glucose 94 mg/dL (74-106); Potassium 4.3 mmol/L (3.5-5.1); Sodium 136 mmol/L (136-145); Total Protein 7.6 g/dL (5.7-8.2)
[2025-03-17 15:53] LABS: Bilirubin, Total 0.5 mg/dL (0.2-1.0)
[2025-03-17 15:58] LABS: Alanine Aminotransferase < 9 U/L (7-40)
[2025-03-17 16:04] VITALS: PULSE 73; RESP 26; O2SAT 100
[2025-03-17 16:46] LABS: Urine Bacteria None Seen /hpf (None Seen)
[2025-03-17 17:01] LABS: Urine Blood Negative /uL (Negative); Urine Clarity Clear (Clear); Urine Color Light-Yellow (Yellow); Urine Mucus FEW (None Seen); Urine Protein, UAD Negative (Negative); Urine Specific Gravity 1.013 (1.001-1.035); Urine Squamous Epithelial Cell FEW /hpf (<5); Urine Urobilinogen Normal (Negative); Urine WBC 1 /HPF (0-5); Urine pH 6.5 (5.0-9.0)
[2025-03-17] MEDS: DexAMETHasone SOD PHOS 10MG/1ML VIAL INJ IV ONE (17:19)
[2025-03-17] MEDS: IPRATROPIUM BROM 0.5 MG/2.5ML INH SOL NEB ONE ×2 (17:31→21:54)
[2025-03-17] MEDS: ALBUTEROL SULF 2.5 MG/0.5ML(0.5%) NEB SOLN NEB ONE ×2 (17:31→21:53)
[2025-03-17 19:12] LABS: COVID19 ANTIGEN SOFIA FIA NEGATIVE (NEGATIVE); Rapid Influenza A Negative (Negative); Rapid Influenza B Negative (Negative)
[2025-03-17] MEDS: AMPICILLIN & SULBACTAM SODIUM 3 GM in SODIUM CHL 0.9% 100 ML IV SCH (19:30)
[2025-03-17] MEDS: AZITHROMYCIN 500MG/ 250ML 250 ML IV ONE (19:41)
[2025-03-17 21:22] VITALS: BP 114/63; PULSE 79; RESP 20; TEMP 98; O2SAT 100
[2025-03-17] MEDS ORDERED: LEVO750T40 PO (21:35)
[2025-03-17] MEDS: ONDANSETRON HCL 4 MG/2 ML VIAL IV ONE (21:50)
--- NOTE | 2025-03-17 21:52 | DVHINCON2 ---
DALY WELDON ACCOUNTS PAYABLE ANALYST 03/17/252: Date of service: March 17, 2025 Referring Physician Zan ROGERS Reason for Consultation Medical management History of Present Illness 79-year-old female past medical history of oxygen-dependent COPD on 2 L nasal cannula presents with complaints of shortness of breaths with associated chest pain. chest pain dull 12/04. During the emergency department evaluation Na 136, K 4.3, BUN 10, creatinine 0.54, GFR 93. Troponins were flat trending . BNP 53.2. W4.4, H&H 11.2/32.2, PLT 185. CXR was positive for multifocal pneumonia. Has been treated with IV antibiotics and dual med nebs. Patient did endorse breathing improved after breathing treatment and currently has an oxygen saturation 96% on 2 L nasal cannula. Patient lives at home with her daughter and her granddaughter. At this time there are no complaints of fevers, chills, dizziness, nausea, vomiting, leg edema. Past Medical History COPD Family History: Patient reports no known family medical history. Allergies: Coded Allergies: NO KNOWN ALLERGIES (Unverified , 04/21/10) Home Meds Active Scripts Levofloxacin Hemihydrate (LEVOFLOXACIN) 750 Mg Tab, 1 TAB PO DAILY for 5 Days, #5 TAB Prov:SABINA YOST PAC 03/17/25 Diclofenac Sodium (Topical) (Aspercreme Arthritis Pain) 1 % Gel, 1 % EX BID, #1 GEL To apply to right knee for pain x2 weeks Prov:ANA MARÍA JARA MD 04/10/24 Azithromycin (Azithromycin) 500 Mg Tab, 1 TAB PO DAILY, #3 TAB Prov:ANA MARÍA JARA MD 04/10/24 Ipratropium-Albuterol (Ipratropium Posey/Albut) 1 Crystal Crystal, 1 CRYSTAL IN TID, #90 ML Prov:ANA MARÍA JARA MD 04/10/24 Prednisone (Prednisone) 20 Mg Tab, 20 MG PO DAILY@BREAKFAST, #5 MG Prov:ANA MARÍA JARA MD 04/10/24 Albuterol Sulfate (Albuterol Sulfate Hfa) 108 Mcg/Act Aer, 108 MCG IN Q2HP PRN, #1 AER Prov:WAQAR AGUILAR DO 04/07/24 Budesonide-Formoterol Fumarate (Budesonide/Formoterol Fum 80-4.5 Mcg/Act) 1 Aer Aer, 1 AER IN BID, #1 AER Prov:ANA MARÍA JARA MD 12/22/23 Montelukast Sodium (MONTELUKAST SODIUM) 10 Mg Tab, 10 MG OR DAILY@DINNER, #90 TAB Prov:ANA MARÍA JARA MD 12/22/23 Blood Pressure Monitoring (Blood Pressure Monitor/De) 1 Kit Kit, KIT XX DAILY, #1 Prov:ANA MARÍA JARA MD 08/11/23 Amlodipine Besylate (Amlodipine Besylate) 10 Mg Tab, 1 TAB PO DAILY, #90 TAB 1 Refill Prov:ANA MARÍA JARA MD 08/11/23 Reported Medications Albuterol Sulfate (Albuterol Sulfate) 2 Mg Tab, 2 MG PO BID PRN for SHORTNESS OF BREATH, MG 12/21/23 Current Medications Current Medications Medications (Trade) Dose Ordered Sig/Monica Route PRN Reason Start Time Stop Time Status Last Admin Ampicillin Sodium/ Sulbactam Sodium 3 gm/Sodium Chloride 100 ml @ 100 mls/hr Q6H IV 03/17/25 19:30 Review of Systems 10 systems reviewed and negative except as per HPI Vital Signs Vital Signs Date Time Temp Pulse Resp B/P (MAP) Pulse Ox O2 Delivery O2 Flow Rate FiO2 03/17/25 20:00 98.1 76 15 131/71 (91) 99 98.1 03/17/25 17:33 Nasal Cannula* 2 28 Physical Exam GENERAL: Patient appearing stated age, in no acute distress. HEENT: Pupils equal and reactive to light and accommodation. Extraocular muscles intact. Mucous membranes moist. Conjunctivae pink. Anicteric sclerae. LUNGS: Bilateral air entry. No wheezes. Diffuse ronchi. HEART: Regular rate and rhythm. Normal S1 and S2. ABDOMEN: BS normoactive, soft, nontender, and nondistended. No CVA tenderness. EXTREMITIES: No clubbing, cyanosis, edema. No calf tenderness. Pedal pulses 2+. NEUROLOGICAL: The patient is alert and oriented times 3. CN II-XII intact. No focal deficits on gross sensory or motor examination Labs/Diagnostic Data Labs Test 03/17/25 18:39 03/17/25 18:17 03/17/25 15:58 03/17/25 15:23 Range/Units Troponin I High Sensitivity 22 </=34 ng/L Influenza Type A Antigen Negative Negative Influenza Type B Antigen Negative Negative SARS-CoV-2 Antigen (Rapid) Negative NEGATIVE Urine Color Light-yellow Yellow Urine Clarity Clear Clear Urine pH 6.5 5.0-9.0 Urine Specific [place] 1.013 1.001-1.035 Urine Protein Negative Negative Urine Ketones Negative Negative Urine Blood Negative Negative /uL Urine Nitrite Negative Negative Urine Bilirubin Negative Negative Urine Urobilinogen Normal Negative mg/dL Urine Leukocyte Esterase Negative Negative /uL Urine RBC 1 0 - 4 /hpf Urine Microscopic WBC 1 0-5 /HPF Urine Squamous Epithelial Cells Few <5 /hpf Urine Bacteria None seen None Seen /hpf Urine Mucus Few None Seen Urine Glucose Normal Normal mg/dL White Blood Count 4.4 4.4-10.8 10^3/uL Red Blood Count 3.03 L 4.0-5.20 10^6/uL Hemoglobin 11.2 L 12.2-16.2 g/dL Hematocrit 32.2 L 36.0-46.0 % Mean Corpuscular Volume 106.4 H 80.0-100.0 fL Mean Corpuscular Hemoglobin 36.9 H 28.0-32.0 pg Mean Corpuscular Hemoglobin Concent 34.6 32.0-36.0 g/dL Red Cell Distribution Width 16.9 H 11.8-14.3 % Platelet Count 185 140-450 10^3/uL Mean Platelet Volume 7.9 6.9-10.8 fL Neutrophils (%) (Auto) 52.6 37.0-80.0 % Lymphocytes (%) (Auto) 29.7 10.0-50.0 % Monocytes (%) (Auto) 7.1 0.0-12.0 % Eosinophils (%) (Auto) 8.6 H 0.0-7.0 % Basophils (%) (Auto) 2.0 0.0-2.0 % Neutrophils # (Auto) 2.3 1.6-8.6 10 ^3/uL Lymphocytes # (Auto) 1.3 0.4-5.4 10 ^3/uL Monocytes # (Auto) 0.3 0-1.3 10 ^3/uL Eosinophils # (Auto) 0.4 0-0.8 10 ^3/uL Basophils # (Auto) 0.1 0-0.2 10 ^3/uL Nucleated Red Blood Cells 0.1 % D-Dimer, Quantitative 0.41 0.0-0.49 mg/L FEU Sodium Level 136 136-145 mmol/L Potassium Level 4.3 3.5-5.1 mmol/L Chloride Level 99 98-107 mmol/L Carbon Dioxide Level 31 20-31 mmol/L Anion Gap 6 5-15 Blood Urea Nitrogen 10 9-23 mg/dL Creatinine 0.54 L 0.550-1.02 mg/dL Glomerular Filtration Rate Calc 93 >90 mL/min BUN/Creatinine Ratio 18.5 10.0-20.0 Serum Glucose 94 74-106 mg/dL Calcium Level 8.9 8.7-10.4 mg/dL Total Bilirubin 0.5 0.2-1.0 mg/dL Aspartate Amino Transferase (AST) 16 13-40 U/L Alanine Aminotransferase (ALT) < 9 7-40 U/L Alkaline Phosphatase 72 46-116 U/L B-Type Natriuretic Peptide 63.21 0-100 pg/mL Total Protein 7.6 5.7-8.2 g/dL Albumin 4.0 3.2-4.8 g/dL Assessment Multifocal pneumonia Chronic oxygen-dependent respiratory failure Oxygen-dependent 2LNC COPD Patient was physically seen and evaluated ER bed nine in the presence with the patient's granddaughter. Patient's chart has been reviewed in its entirety including lab values, vital signs. Chest x-ray has been interpreted per the radiologist and reviewed by myself and agree with the findings consistent with multifocal pneumonia. CMP was unremarkable. Troponin levels has been negative at initial troponin being drawn at 3:20 p.m.. CBC W 4.4, H&H 11.2/32.2, PLT 185. Patient is currently at her baseline. Has an oxygen saturation of 96% on 2 L nasal cannula. Plan/Recommendation Patient can be discharged home per the emergency department provider with a prescription for oral antibiotics. Recommend Levaquin 750 mg oral x 5 days. Patient and granddaughter endorse having med nebs at home. HMO case management has been consulted to establish home safety evaluation for tomorrow. We will also schedule patient for follow up visit in the [facility] urgent care on Wednesday for repeat evaluation of pneumonia. Patient was to be scheduled with PCP within this upcoming week. Plan of care was discussed in its entirety with the patient and her granddaughter who was at the bedside, whom agree and state they understand the current plan of care. Patient was provided with strict ER precautions including but not limited to fevers, chills, dizziness, worsening shortness of breath, chest pain, nausea, vomiting. If any of these occur please return to the nearest emergency department for further evaluation and treatment. Patient case was discussed in detail with supervising physician, who is in agreement with the current plan of care. Plan discussed with: Patient, Other (Granddaughter) KENNEDY DC MD 03/18/25 1708: Family History: Patient reports no known family medical history. Allergies: Coded Allergies: NO KNOWN ALLERGIES (Unverified , 04/21/10) Home Meds Active Scripts Levofloxacin Hemihydrate (LEVOFLOXACIN) 750 Mg Tab, 1 TAB PO DAILY for 5 Days, #5 TAB Prov:SABINA YOST 03/17/25 Diclofenac Sodium (Topical) (Aspercreme Arthritis Pain) 1 % Gel, 1 % EX BID, #1 GEL To apply to right knee for pain x2 weeks Prov:ANA MARÍA JARA MD 04/10/24 Azithromycin (Azithromycin) 500 Mg Tab, 1 TAB PO DAILY, #3 TAB Prov:ANA MARÍA JARA MD 04/10/24 Ipratropium-Albuterol (Ipratropium Posey/Albut) 1 Crystal Crystal, 1 CRYSTAL IN TID, #90 ML Prov:ANA MARÍA JARA MD 04/10/24 Prednisone (Prednisone) 20 Mg Tab, 20 MG PO DAILY@BREAKFAST, #5 MG Prov:ANA MARÍA JARA MD 04/10/24 Albuterol Sulfate (Albuterol Sulfate Hfa) 108 Mcg/Act Aer, 108 MCG IN Q2HP PRN, #1 AER Prov:WAQAR AGUILAR DO 04/07/24 Budesonide-Formoterol Fumarate (Budesonide/Formoterol Fum 80-4.5 Mcg/Act) 1 Aer Aer, 1 AER IN BID, #1 AER Prov:ANA MARÍA JARA MD 12/22/23 Montelukast Sodium (MONTELUKAST SODIUM) 10 Mg Tab, 10 MG OR DAILY@DINNER, #90 TAB Prov:ANA MARÍA JARA MD 12/22/23 Blood Pressure Monitoring (Blood Pressure Monitor/De) 1 Kit Kit, KIT XX DAILY, #1 Prov:ANA MARÍA JARA MD 08/11/23 Amlodipine Besylate (Amlodipine Besylate) 10 Mg Tab, 1 TAB PO DAILY, #90 TAB 1 Refill Prov:ANA MARÍA JARA MD 08/11/23 Reported Medications Albuterol Sulfate (Albuterol Sulfate) 2 Mg Tab, 2 MG PO BID PRN for SHORTNESS OF BREATH, MG 12/21/23 DALY WELDON NP March 17, 2025 21:52 KENNEDY DC MD March 18, 2025 17:08
[2025-03-17 21:54] VITALS: RESP 22; O2SAT 97
[2025-03-17] MEDS: cefTRIAXone 1GM/50ML D5W 50 ML IV ONE (22:45)
--- NOTE | 2025-03-18 04:36 | ECG ---
[facility] Test Date: 2025-03-17 Test Time: 14:54:58 Pat Name: LANDON NAQVI Department: ED Room: Gender: F Window Display Designer: SHIRIN : 1945 Requested By: SABINA YOST Order Number: [id number] Reading MD: Brown Ac Measurements Intervals [place] Rate: 75 P: -27 PA: 111 QRS: -43 QRSD: 84 T: 2 QT: 367 QTc: 410 Interpretive Statements Sinus rhythm Borderline short PA interval Left anterior fascicular block LVH by voltage Anterior Q waves, possibly due to LVH Electronically Signed On 03-19-2025 12:09:39 PDT by Brown Ac Please click the below link to view image of tracing.
== END 2025-03-17 22:48 | disposition home or self-care (01) ==
LOC: ER 14:47 → EDBD 14:47 → ER 22:48
DX: J18.8 Other pneumonia, unspecified organism (principal); J44.0 Chronic obstructive pulmonary disease with (acute) lower respiratory infection; D64.9 Anemia, unspecified; Z79.52 Long term (current) use of systemic steroids; Z79.899 Other long term (current) drug therapy; Z99.81 Dependence on supplemental oxygen; Z20.822 Contact with and (suspected) exposure to COVID-19
CPT/HCPCS: 36415; 71045; 80053; 81001; 83880; 84484; 85025; 85379; 87426; 87804; 93005; 94640; 96365; 96366; 96375; 99285; J0456; J1100; J2405